=== PATIENT | female | born 1985 | race Caucasian/White ===

== ENCOUNTER 2019-03-22 21:08 | Emergency (ER) | payer OTHER ==
[~2019-03-22] VITALS: Ht 165.1 cm; Wt 79.4 kg
--- NOTE | 2019-03-22 21:40 | PHYS DOC ---
Past Medical History Past Medical History: No Pertinent History (YAZMIN ANDERSON APRN) Past Surgical History: Other Additional Past Surgical Histo: LEAP PROCEDURE 15 YRS AGO (YAZMIN ANDERSON APRN) Alcohol Use: Occasionally Drug Use: None (YAZMIN ANDERSON APRN) Attending Signature I have participated in the care of this patient and I have reviewed and agree with all pertinent clinical information above including history, exam, and recommendations. (CODEY CASTAÑEDA MD) Adult General Chief Complaint Chief Complaint: HEADACHE HPI HPI Patient is a 33 year old female who presents with headache, dizziness, nausea that started this morning when she woke up. The patient rates her pain a 7 out of 10 in severity and sharp. The patient also states she's been having left ear pain. She states that her head feels like is floating. The patient states the room is spinning she feels off balance today. She has a history of migraines and this feels different. Denies any trauma. (YAZMIN ANDERSON APRN) Review of Systems Review of Systems Constitutional: Denies fever or chills [] Eyes: Denies change in visual acuity, redness, or eye pain [] HENT: Denies nasal congestion or sore throat [] Respiratory: Denies cough or shortness of breath [] Cardiovascular: No additional information not addressed in HPI [] GI: Reports nausea, Denies abdominal pain, vomiting, bloody stools or diarrhea [] : Denies dysuria or hematuria [] Musculoskeletal: Denies back pain or joint pain [] Integument: Denies rash or skin lesions [] Neurologic: Reports vertigo and headache, Denies focal weakness or sensory changes [] Endocrine: Denies polyuria or polydipsia [] Complete systems were reviewed and found to be within normal limits, except as documented in this note. (YAZMIN ANDERSON APRN) Current Medications Current Medications Current Medications Medications (Trade) Dose Ordered Sig/Suzie Start Time Stop Time Status Last Admin Dose Admin Diphenhydramine HCl (Benadryl) 50 mg 1X ONCE 03/22/19 23:00 03/22/19 22:54 DC 03/22/19 22:47 50 MG Ketorolac Tromethamine (Toradol 30mg Vial) 30 mg 1X ONCE 03/22/19 23:00 03/22/19 22:54 DC 03/22/19 22:48 30 MG Meclizine HCl (Antivert) 25 mg 1X ONCE 03/22/19 22:00 03/22/19 22:01 DC 03/22/19 21:46 25 MG Prochlorperazine Maleate (Compazine) 10 mg 1X ONCE 03/22/19 23:00 03/22/19 22:54 DC 03/22/19 22:48 10 MG (CODEY CASTAÑEDA MD) Allergies Allergies Allergies Coded Allergies Type Severity Reaction Last Updated Verified No Known Drug Allergies 03/22/19 No (CODEY CASTAÑEDA MD) Physical Exam Physical Exam Constitutional: Well developed, well nourished, no acute distress, non-toxic appearance. [] HENT: Normocephalic, atraumatic, bilateral external ears normal, oropharynx moist, no oral exudates, nose normal. [] Eyes: PERRLA, EOMI, conjunctiva normal, no discharge. [] Neck: Normal range of motion, no tenderness, supple, no stridor. [] Cardiovascular:Heart rate regular rhythm, no murmur [] Lungs & Thorax: Bilateral breath sounds clear to auscultation [] Abdomen: Bowel sounds normal, soft, no tenderness, no masses, no pulsatile masses. [] Skin: Warm, dry, no erythema, no rash. [] Back: No tenderness, no CVA tenderness. [] Extremities: No tenderness, no cyanosis, no clubbing, ROM intact, no edema. [] Neurologic: Alert and oriented X 3, has + romberg sign. Psychologic: Affect normal, judgement normal, mood normal. [] (YAZMIN ANDERSON APRN) Current Patient Data Vital Signs Vital Signs Date Time Temp Pulse Resp B/P (MAP) Pulse Ox O2 Delivery O2 Flow Rate FiO2 03/22/19 21:27 98.2 81 18 128/76 (93) 100 Room Air 98.2 (CODEY CASTAÑEDA MD) EKG EKG [] (YAZMIN ANDERSON APRN) Radiology/Procedures Radiology/Procedures [][facility] [address] [place] [address] IMAGING REPORT Signed PATIENT: JENIFFER TOUSSAINT ACCOUNT: [id number] : 1985 LOCATION: ER AGE: 33 SEX: F EXAM STATUS: REG ER ORD. PHYSICIAN: YAZMIN ANDERSON APRN REASON: dizziness, headache PROCEDURE: CT HEAD WO CONTRAST Exam: CT head INDICATION: Dizziness, headache TECHNIQUE: Sequential axial images through the head were obtained without the administration of IV contrast. Comparisons: None FINDINGS: No focal parenchymal lesion or hemorrhage is identified. There is no midline shift or sulcal effacement. No acute vascular territory infarction is identified. [place]-white distinction is preserved. The ventricular system is within normal limits without compression hydrocephalus. The basal cisterns are well maintained. The visualized portions of the paranasal sinuses and mastoid air cells are well-pneumatized. No acute fractures. IMPRESSION: No acute intracranial abnormality. Exposure: One or more of the following in the visualized dose reduction techniques were utilized for this examination: 1. Automated exposure control 2. Adjustment of the MA and/or KV according to patient size Use of iterative of reconstructive technique Electronically signed by: Saul Velazquez MD (03/22/2019 10:23 PM) [facility] DICTATED and SIGNED BY: SAUL VELAZQUEZ MD DATE: 03/22/192222 (YAZMIN ANDERSON APRN) Course & Med Decision Making Course & Med Decision Making Pertinent Labs and Imaging studies reviewed. (See chart for details) We'll give the patient meclizine, get a urine test, get a CT scan of her head. I suspect the patient has benign positional vertigo. We'll see how she improves with meclizine. Patient has had improvement with meclizine although she is still having some dizziness and has some nausea. The patient states she feels less dizzy, and her balance has improved with the romberg test. I suspect that the episode of vertigo has caused a migraine and so will give a headache cocktail before discharge. Will also write for meclizine. Discussed with patient follow up with an ENT. (YAZMIN ANDERSON APRN) Dragon Disclaimer Dragon Disclaimer This electronic medical record was generated, in whole or in part, using a voice recognition dictation system. (YAZMIN ANDERSON APRN) Departure Departure Impression: Primary Impression: Benign positional vertigo Additional Impression: Migraine Disposition: HOME, SELF-CARE Condition: STABLE Referrals: NO PCP (PCP) Patient Instructions: Benign Positional Vertigo, Migraine Headache Additional Instructions: Thank you for visiting [facility]. We appreciate you trusting us with your care. If any additional problems come up don't hesitate to return to visit us. Please follow up with your primary care provider so they can plan additional care if needed and know about the problem that you had. If symptoms worsen come back to the Emergency Department. Any concerning symptoms that start such as chest pain, shortness of air, weakness or numbness on one side of the body, running high fevers or any other concerning symptoms return to the ER. Please follow up with ENT regarding symptoms. Scripts Meclizine Hcl (MECLIZINE HCL) 25 Mg Tablet 1 TAB PO PRN TID PRN for DIZZINESS, #30 TAB Prov: YAZMIN ANDERSON APRN 03/22/19 Problem Qualifiers Primary Impression: Benign positional vertigo Laterality: left Qualified Codes: H81.12 - Benign paroxysmal vertigo, left ear Additional Impression: Migraine Migraine type: unspecified Status migrainosus presence: without status migrainosus Intractability: not intractable Qualified Codes: G43.909 - Migraine, unspecified, not intractable, without status migrainosus YAZMIN ANDERSON APRN Mar 22, 2019 21:40 CODEY CASTAÑEDA MD Mar 23, 2019 02:16
[2019-03-22] MEDS ORDERED: MECLIZINE HCL 12.5 MG TABLET. PO ONE (22:00)
--- NOTE | 2019-03-22 22:26 | RAD ---
Exam: CT head INDICATION: Dizziness, headache TECHNIQUE: Sequential axial images through the head were obtained without the administration of IV contrast. Comparisons: None FINDINGS: No focal parenchymal lesion or hemorrhage is identified. There is no midline shift or sulcal effacement. No acute vascular territory infarction is identified. [place]-white distinction is preserved. The ventricular system is within normal limits without compression hydrocephalus. The basal cisterns are well maintained. The visualized portions of the paranasal sinuses and mastoid air cells are well-pneumatized. No acute fractures. IMPRESSION: No acute intracranial abnormality. Exposure: One or more of the following in the visualized dose reduction techniques were utilized for this examination: 1. Automated exposure control 2. Adjustment of the MA and/or KV according to patient size Use of iterative of reconstructive technique Electronically signed by: Saul Berry MD (03/22/2019 10:23 PM) [facility]
[2019-03-22] MEDS ORDERED: MECL25TA3 PO (22:31)
[2019-03-22 22:38] VITALS: BP 115/69
[2019-03-22] MEDS ORDERED: diphenhydrAMINE HCL 25 MG CAPSULE PO ONE (23:00)
[2019-03-22] MEDS ORDERED: PROCHLORPERAZINE 5 MG TABLET. PO ONE (23:00)
[2019-03-22] MEDS ORDERED: KETOROLAC 30 MG/ML VIAL. IM ONE (23:00)
== END 2019-03-22 22:53 | disposition home or self-care (01) ==
LOC: ER 21:08
DX: H81.12 Benign paroxysmal vertigo, left ear (principal); G43.909 Migraine, unspecified, not intractable, without status migrainosus
CPT/HCPCS: 70450; 96372; 99284; J1885; J8597; Q0163; Q0164